=== PATIENT | male | born 2000 | race Caucasian/White ===

== ENCOUNTER 2018-03-02 16:45 | Emergency (ER) | payer OTHER ==
[2018-03-02 17:20] VITALS: BP 119/81; TEMP 98.6; BMI 24.4
[2018-03-02 17:21] VITALS: PULSE 78; RESP 18; O2SAT 99
[2018-03-02] MEDS ORDERED: Tdap Vaccine 0.5 ml Vial (10-64 yrs) IM ONE ×2 (17:23→17:34)
--- NOTE | 2018-03-02 17:40 | ED PDOC ---
HPI: General Adult Time Seen by Provider: 03/02/18 17:22 Chief Complaint (Nursing): Abnormal Skin Integrity Chief Complaint (Provider): Laceration History Per: Patient History/Exam Limitations: no limitations Onset/Duration Of Symptoms: Mins Have you had recent travel within the past 21 days to any of the following countries: [place], [place], [place] or [place]?: No Current Symptoms Are (Timing): Still Present Additional History Per: Patient Additional Complaint(s): 17yo male, comes to ER for evaluation of laceration on his left hand. Patient states he was using a pineapple corer and injured his finger. Patient otherwise denies any further injuries, active bleeding, weakness or numbness. Patient offers no additional medical complaints. Past Medical History Reviewed: Historical Data, Nursing Documentation, Vital Signs Vital Signs: Last Vital Signs Temp 98.6 F 03/02/18 17:19 Pulse 78 03/02/18 17:19 Resp 18 03/02/18 17:19 BP 119/81 03/02/18 17:19 Pulse Ox 99 03/02/18 17:40 - Medical History PMH: No Chronic Diseases - Surgical History Surgical History: No Surg Hx - Family History Family History: States: No Known Family Hx - Immunization History Hx Influenza Vaccination: No Hx Pneumococcal Vaccination: No - Home Medications Home Medications: Ambulatory Orders Medication Instructions Recorded Atomoxetine Hydrochloride 25 mg PO DAILY 03/27/15 [Strattera] Cephalexin [cephalexin] 500 mg PO BID #14 cap 06/29/16 - Allergies Allergies/Adverse Reactions: Allergies Allergy/AdvReac Type Severity Reaction Status Date / Time shrimp Allergy RASH Verified 06/29/16 13:53 Review of Systems ROS Statement: Except As Marked, All Systems Reviewed And Found Negative Skin: Positive for: Other (laceration on left hand) Neurological: Negative for: Weakness, Numbness Physical Exam - Reviewed Nursing Documentation Reviewed: Yes Vital Signs Reviewed: Yes - Physical Exam Appears: Positive for: Non-toxic Head Exam: Positive for: ATRAUMATIC, NORMAL INSPECTION, NORMOCEPHALIC Skin: Positive for: Normal Color Neck: Positive for: Supple Extremity: Positive for: Normal ROM, Capillary Refill (< 2 seconds), Other (Y shaped superficial laceration on left 3rd digit. No active bleeding, no surrounding erythema or warmth noted.). Negative for: Deformity, Swelling Neurologic/Psych: Positive for: Alert, Oriented. Negative for: Motor/Sensory Deficits - ECG O2 Sat by Pulse Oximetry: 99 (RA) Pulse Ox Interpretation: Normal Medical Decision Making Medical Decision Making: Impression: Laceration Plan: * TDAP booster 0.5ml IM Wound irrigated with sterile water, and band-aid applied to the site. Patient instructed on wound care as well. Stable for discharge home. Scribe Attestation: Documented by Shawanda Robbins acting as a scribe for AHMET Salazar. Provider Attestation: All medical record entries made by the Scribe were at my direction and personally dictated by me. I have reviewed the chart and agree that the record accurately reflects my personal performance of the history, physical exam, medical decision making, and the department course for this patient. I have also personally directed, reviewed, and agree with the discharge instructions and disposition. Disposition - Clinical Impression Clinical Impression: Finger laceration, Tetanus toxoid vaccination administered at current visit - Patient ED Disposition Is Patient to be Admitted: No Counseled Patient/Family Regarding: Diagnosis, Need For Followup - Disposition Referrals: [facility] [Outside] Disposition: Routine/Home Disposition Time: 17:40 Condition: GOOD Instructions: Wound Care (DC) Forms: [employer] (Nigerien)
== END 2018-03-02 17:45 | disposition home or self-care (01) ==
LOC: H.ER 16:45
DX: S61.412A Laceration without foreign body of left hand, initial encounter (principal); Z23 Encounter for immunization; W45.8XXA Other foreign body or object entering through skin, initial encounter; Y93.G1 Activity, food preparation and clean up

== ENCOUNTER 2018-10-30 10:13 | Emergency (ER) | payer OTHER ==
[2018-10-30 10:18] VITALS: BMI 24.7
[2018-10-30] MEDS ORDERED: Amoxicillin-Clav 875-125 mg Tab PO STA (11:04)
--- NOTE | 2018-10-30 11:04 | ED PDOC ---
HPI: Skin/Bite Injury Time Seen by Provider: 10/30/18 10:25 Chief Complaint (Nursing): Bite Chief Complaint (Provider): dog bite History Per: Patient History/Exam Limitations: no limitations Additional Complaint(s): 17 y/o M with hx of ADHD who presents with dog bite to Right eye 2 days ago. 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 He has noticed some increased redness and swelling at the site. Had body aches yesterday but denies fever, chills, pus drainage, GARY, blurry vision. Has only noted bloody drainage occasionally. He has not taken any medication for pain. He is up to date on tetanus vaccine having received a booster in 02/2018. He cleansed wound with soap and water on day 1 and has been using Neosporin and A&D ointment since then. Past Medical History Reviewed: Historical Data, Nursing Documentation, Vital Signs Vital Signs: Last Vital Signs Temp 98.4 F 10/30/18 10:15 Pulse 103 H 10/30/18 10:15 Resp 20 10/30/18 10:15 BP 132/83 10/30/18 10:15 Pulse Ox 98 10/30/18 10:15 Primary Care Provider: DoctorLeo - Medical History PMH: Asthma - Family History Family History: States: Unknown Family Hx - Immunization History Hx Influenza Vaccination: No Hx Pneumococcal Vaccination: No - Home Medications Home Medications: Ambulatory Orders Medication Instructions Recorded Atomoxetine Hydrochloride 25 mg PO DAILY 03/27/15 [Strattera] Cephalexin [cephalexin] 500 mg PO BID #14 cap 06/29/16 Amoxicillin/Clavulanate [Augmentin 1 tab PO BID #13 tab 10/30/18 875 MG-125 MG] Ibuprofen [Motrin Tab] 600 mg PO Q6 PRN 7 Days tab 10/30/18 - Allergies Allergies/Adverse Reactions: Allergies Allergy/AdvReac Type Severity Reaction Status Date / Time shrimp Allergy RASH Verified 10/30/18 10:23 Review of Systems Constitutional: Negative for: Fever, Chills Eyes: Negative for: Vision Change, Conjunctivae Inflammation Physical Exam - Reviewed Nursing Documentation Reviewed: Yes Vital Signs Reviewed: Yes - Physical Exam Appears: Positive for: Well Head Exam: Positive for: ATRAUMATIC Skin: Negative for: Normal Color (approx 1.5 cm irregular vertical laceration on center forehead between eyes with another superfical laceration above Right eyebrow and 2 superficial puncture wounds on Right eyelid as well as Right temporal area. Mild swelling of central forehead laceration with associated erythema. No pus drainage or fluctuance noted. ) Neurological/Psych: Positive for: Awake, Alert, Oriented - ECG O2 Sat by Pulse Oximetry: 98 Medical Decision Making Medical Decision Making: Wounds flushed with 200cc sterile water, Bacitracin applied. Ibuprofen 600mg PO x 1 Augmentin 875/125mg PO x 1 Pt advised to continue to cleanse with soap and water daily, avoid using A&D ointment but continue Abx ointment and take Tylenol/Ibuprofen for pain. Return instructions provided. Disposition - Clinical Impression Clinical Impression: Animal bite wound - Patient ED Disposition Is Patient to be Admitted: No - Disposition Referrals: Stephany Kessler MD [Family Provider] - Disposition: Routine/Home Disposition Time: 11:20 Condition: STABLE Additional Instructions: Continue to cleanse with soap and water daily, avoid using A&D ointment but continue Abx ointment and take Tylenol/Ibuprofen for pain. Return to ER if you develop fevers, pus drainage or worsening redness despite being on antibiotics. Keep main wound in center of forehead covered if will potentially get dirty. Otherwise leave wounds open to air. Prescriptions: Amoxicillin/Clavulanate [Augmentin 875 MG-125 MG] 1 tab PO BID #13 tab Ibuprofen [Motrin Tab] 600 mg PO Q6 PRN 7 Days tab PRN Reason: Pain, Moderate (4-7) Instructions: Animal Bites (DC) Forms: [employer] (Portuguese) Print Language: MALAY
[2018-10-30] MEDS ORDERED: Amoxicillin-Clav 875-125 mg Tab PO ONE (11:32)
[2018-10-30 12:08] VITALS: BP 127/72; PULSE 82; RESP 16; TEMP 98
[2018-10-31 09:51] VITALS: O2SAT 98
== END 2018-10-30 12:08 | disposition home or self-care (01) ==
LOC: H.ER 10:13
DX: S01.151A Open bite of right eyelid and periocular area, initial encounter (principal); W54.0XXA Bitten by dog, initial encounter; Y92.89 Other specified places as the place of occurrence of the external cause; Y99.0 Civilian activity done for income or pay; F90.9 Attention-deficit hyperactivity disorder, unspecified type; J45.909 Unspecified asthma, uncomplicated